=== PATIENT | female | born 1990 | race Caucasian/White ===

== ENCOUNTER 2021-04-10 11:37 | Inpatient (IN) | payer OTHER, SELFPAY ==
[~2021-04-10] VITALS: Ht 149.9 cm; Wt 93.0 kg
[2021-04-10] MEDS ORDERED: TERBUTALINE SULFATE 1 MG/ML VIAL SUBCUT ONE (11:45)
[2021-04-10] MEDS ORDERED: NALBUPHINE HCL 10 MG/ML AMP IVP PRN (11:45)
[2021-04-10 12:22] LABS: BASOPHILS % (AUTO) 0.4 % (0.0-2.0); EOSINOPHILS # (AUTO) 0.1 K/uL (0.0-0.4); EOSINOPHILS % (AUTO) 0.6 % (0.0-4.0); HEMATOCRIT 37.5 % (36-48); HEMOGLOBIN 12.7 g/dL (12.0-16.0); LYMPHOCYTES # (AUTO) 1.8 K/uL (1.0-5.5); LYMPHOCYTES % (AUTO) 18.9 % (20.5-51.5); MEAN CORPUSCULAR HEMOGLOBIN 30 pg (27-31); MEAN CORPUSCULAR HGB CONC 34 % (32-36); MEAN CORPUSCULAR VOLUME 88 fL (79.0-98.0); MONOCYTES # (AUTO) 0.7 K/uL (0.0-1.0); MONOCYTES % (AUTO) 7.1 % (1.7-9.3); NEUTROPHILS # (AUTO) 6.9 K/uL (1.8-7.7); PLATELET COUNT (AUTO) 289 K/uL (130-430); RED BLOOD CELL COUNT(AUTO) 4.27 MIL/uL (4.2-6.2); RED CELL DISTRIBUTION WIDTH 13.7 % (9.0-15.0); WHITE BLOOD COUNT (AUTO) 9.4 K/uL (4.8-10.8)
[2021-04-10 15:02] VITALS: BP_SYST 137
[2021-04-10] MEDS ORDERED: AMPICILLIN SODIUM 2 GM in NS 100 ML IV ONE (16:00)
[2021-04-10] MEDS ORDERED: OXYTOCIN/0.9 % SODIUM CHLORIDE 1,000 ML IV SCH (16:00)
[2021-04-10] MEDS ORDERED: LR 500 ML IV ONE (16:00)
[2021-04-10] MEDS: OXYTOCIN/0.9 % SODIUM CHLORIDE 1,000 ML IV SCH (16:07)
[2021-04-10] MEDS: LR 1,000 ML IV SCH ×2 (19:03)
[2021-04-11] MEDS ORDERED: fentaNYL CITRATE/PF 100 MCG/2 ML AMP ONE ×2 (00:03→16:14)
[2021-04-11] MEDS ORDERED: ROPIVACAINE HCL/PF 0.2% 200 ML ONE ×2 (00:04→16:14)
[2021-04-11] MEDS ORDERED: LR 500 ML IV ONE (01:00)
[2021-04-11] MEDS ORDERED: FENT2mCg/mL-ROPIVA0.2%/NS EPID 200 ML EP SCH (01:00)
[2021-04-11] MEDS: LR 1,000 ML IV SCH ×3 (01:06→17:40)
[2021-04-11] MEDS: AMPICILLIN SODIUM 1 GM in NS 50 ML IV SCH ×5 (05:35→21:44)
[2021-04-11] MEDS: OXYTOCIN/0.9 % SODIUM CHLORIDE 1,000 ML IV SCH (17:41)
[2021-04-12] MEDS ORDERED: OXYCODONE/ACETAMINOPHEN 5-325 TABLET PO PRN ×2 (01:30)
[2021-04-12] MEDS ORDERED: ANUSOL 1 EA SUPP.RECT (PREPARATION H) RC PRN (01:30)
[2021-04-12] MEDS ORDERED: HYDROcodone/ACETAMIN 5-325 MG TAB (NORCO/ VICODIN) PO PRN (01:30)
[2021-04-12] MEDS ORDERED: OXYTOCIN/0.9 % SODIUM CHLORIDE 1,000 ML IV ONE (01:30)
[2021-04-12] MEDS ORDERED: DERMOPLAST SPRAY TP PRN (01:30)
[2021-04-12] MEDS ORDERED: MEASLES,MUMPS&RUBELLA VACC/PF 12500 UNIT/0.5 ML VIAL SUBQ PRN (01:30)
[2021-04-12] MEDS ORDERED: OXYTOCIN/0.9 % SODIUM CHLORIDE 1,000 ML IV SCH (01:30)
[2021-04-12] MEDS ORDERED: RHO(D) IMMUNE GLOBULIN/MALTOSE 1500 UNITS/1.3 ML (WINHRO) IM PRN (01:30)
[2021-04-12] MEDS ORDERED: HYDROCORTISONE 0.5% CREAM 28.4 GM CREAM.GM. TP PRN (01:30)
[2021-04-12] MEDS ORDERED: WITCH HAZEL LEAF 1 MED.PAD MED.PAD TP PRN (01:30)
[2021-04-12] MEDS ORDERED: DIPH-TET-PERTUS Vaccine 0.5 ML VIAL (ADACEL) I.M. PRN (01:30)
[2021-04-12] MEDS ORDERED: NALOXONE HCL 0.4 MG/ML AMP (NARCAN) IVP PRN (01:30)
[2021-04-12] MEDS ORDERED: LANOLIN 7 GM OINT. TP PRN (01:30)
[2021-04-12] MEDS ORDERED: METHYLERGONOVINE MALEATE 0.2 MG TABLET PO PRN (01:30)
[2021-04-12] MEDS: IBUPROFEN 600 MG TABLET PO SCH ×3 (05:45→17:59)
[2021-04-12] MEDS: DOCUSATE SODIUM 100 MG CAPSULE PO SCH ×2 (10:00→10:02)
--- NOTE | 2021-04-12 16:16 | NUR ---
Dietitian Recommendations * Continue regular diet * Outpatient office 365 consultant for optimal [facility] success LP, RD Please refer to Nutrition Assessment for details. Addendum: 04/12/21 at [address] Amended: Links added.
[2021-04-12] MEDS ORDERED: TEMAZEPAM 15 MG CAPSULE PO PRN (21:00)
[2021-04-12] MEDS ORDERED: SENNOSIDES/DOCUSATE SODIUM 1 TAB TABLET(SENOKOT-S) PO SCH (21:00)
[2021-04-13] MEDS: IBUPROFEN 600 MG TABLET PO SCH ×2 (00:56→06:07)
[2021-04-13] MEDS: DOCUSATE SODIUM 100 MG CAPSULE PO SCH (09:27)
[2021-04-13 13:05] LABS: BASOPHILS % (AUTO) 0.3 % (0.0-2.0); EOSINOPHILS # (AUTO) 0.2 K/uL (0.0-0.4); EOSINOPHILS % (AUTO) 1.8 % (0.0-4.0); HEMATOCRIT 25.8 % (36-48); HEMOGLOBIN 8.6 g/dL (12.0-16.0); LYMPHOCYTES % (AUTO) 18.2 % (20.5-51.5); MEAN CORPUSCULAR HEMOGLOBIN 30 pg (27-31); MEAN CORPUSCULAR HGB CONC 33 % (32-36); MEAN CORPUSCULAR VOLUME 90 fL (79.0-98.0); MONOCYTES # (AUTO) 0.6 K/uL (0.0-1.0); MONOCYTES % (AUTO) 5.3 % (1.7-9.3); NEUTROPHILS # (AUTO) 8.1 K/uL (1.8-7.7); NEUTROPHILS % (AUTO) 74.4 % (40.0-70.0); PLATELET COUNT (AUTO) 198 K/uL (130-430); RED BLOOD CELL COUNT(AUTO) 2.85 MIL/uL (4.2-6.2); RED CELL DISTRIBUTION WIDTH 14.4 % (9.0-15.0); WHITE BLOOD COUNT (AUTO) 10.9 K/uL (4.8-10.8)
[2021-04-15 20:06] LABS: FTA-Ab (T PALLIDUM) Non Reactive (Non Reactive)
== END 2021-04-13 11:15 | disposition home or self-care (01) | DRG 807 ==
LOC: SPU 11:37
PROVIDERS: ADMIT Specialist; ATTEND Specialist
PROC: 10D07Z6 Extraction of Products of Conception, Vacuum, Via Natural or Artificial Opening (ICD-10-PCS; principal; 2021-04-12)
PROC: 0W8NXZZ Division of Female Perineum, External Approach (ICD-10-PCS; 2021-04-12)
PROC: 3E0R3BZ Introduction of Anesthetic Agent into Spinal Canal, Percutaneous Approach (ICD-10-PCS; 2021-04-12)
PROC: 00HU33Z Insertion of Infusion Device into Spinal Canal, Percutaneous Approach (ICD-10-PCS; 2021-04-12)
DX: O69.3XX0 Labor and delivery complicated by short cord, not applicable or unspecified (principal); Z37.0 Single live birth; O99.824 Streptococcus B carrier state complicating childbirth; Z20.822 Contact with and (suspected) exposure to COVID-19; O99.284 Endocrine, nutritional and metabolic diseases complicating childbirth; E03.9 Hypothyroidism, unspecified; Z3A.39 39 weeks gestation of pregnancy
CPT/HCPCS: 36415; 81002; 85025; 86592; 86780; 86886; 86900; 86901; 94760; J0290; J2590; J3010